=== PATIENT | male | born 1990 | race Caucasian/White ===

== ENCOUNTER 2016-05-03 13:52 | Emergency (ER) | payer OTHER ==
[~2016-05-03] VITALS: Ht 177.8 cm; Wt 66.5 kg
[2016-05-03 13:57] VITALS: BP 132/85; PULSE 87; TEMP 36.4; O2SAT 98; Ht 177.8 cm; Wt 66.5 kg
[2016-05-03] MEDS ORDERED: ALPR1TAB3 PO (14:09)
--- NOTE | 2016-05-03 16:15 | EMERGENCY ROOM VISIT NOTE ---
History First contact with patient: 14:45 Chief Complaint: MEDICATION REFILL REQUEST Stated Complaint: MEDICATION REQUEST History of Present Illness The patient is a 25 year old white male who presents to the Emergency Room with complaints of running out of his Xanax. A female assistant project manager accompanies him today. Patient states that he moved here from [place] and has had difficulty obtaining his Xanax. He states he takes 1 mg twice a day and this is prescribed by . Patient states that he saw a PCP in [place], Dr. Lennon, and was only prescribed 0.25 mg twice a day. When he requested that the prescription be increased, he states he was told to find another primary care doctor. He states he has run out of his medication and is requesting a refill. He takes for anxiety. He denies any other medications. No other complaints. Review of Systems REVIEW OF SYSTEM: HEENT: No dizziness, visual problems, hearing loss, or tinnitus. There is no difficulty swallowing and no oral lesions are present. PULMONARY: No cough, shortness of breath, sputum production or hemoptysis. CARDIOVASCULAR: No chest pain, palpitations, shortness of breath or peripheral edema. GASTROINTESTINAL: No diarrhea, constipation, nausea, vomiting, or abdominal pain. GENITOURINARY: No dysuria, frequency, urgency or nocturia. NEUROLOGIC: No weakness, muscle tenderness, epilepsy or history of neurological problems. MUSCULOSKELETAL: No history of joint tenderness/swelling. No history of arthritis or arthralgias. SKIN: No rashes or lesions. PSYCHIATRIC: Positive history of anxiety. ENDOCRINE: No history of diabetes, thyroid disorders, or abnormal hair growth. Past Medical/Surgical History Past medical history: Significant for anxiety. Previous surgeries: None Family History Unremarkable. Social History Smoking Status: Current Every Day Smoker Smokeless Tobacco Use: No Alcohol Use: none Drug Use: none Marital Status: single Housing Status: lives with significant other Occupation Status: unemployed Current/Historical Medications Scheduled Alprazolam (Xanax), 1 MG PO BID Allergies Coded Allergies: No Known Allergies (Unverified , 05/03/16) Physical Exam Vital Signs Date Time Temp Pulse Resp B/P Pulse Ox O2 Delivery O2 Flow Rate FiO2 05/03/16 13:57 36.4 87 18 132/85 98 Physical Exam Gen.: Well-developed, well-nourished, young white male, sitting on a bed. Alert and oriented. No acute distress. He does not seem anxious. Medical Decision & Procedures ED Course Patient was evaluated in [facility]. PDMP was checked. He was found to have filled 2 prescriptions from his doctor in [place] for Xanax 0.25 mg twice a day. I did call his doctor's office in [place]. He on-call physician was not familiar with the patient but only recommended filling the 0.25 mg tablet. Pharmacy records were noted to show that he had received 1 mg tablets from the [facility]. I did discuss this with the patient. He stated that the 0.25 mg tablets were prescribed by his doctor in [place] because "it would look better". I informed the patient that he should have enough of the 0.25 mg tablets as prescribed by Dr. Lennon, and that I would not prescribe 1 mg tablets. Patient asked for assistance in finding a new PCP. I did suggest that he have his doctor in [place] speak directly with any new primary care physician to avoid any misunderstanding about his Xanax dose and frequency. Case management did speak with the patient. Patient then walked out without further instruction. Medical Decision Possibility of anxiety, medication seeking behavior, and medication abuse were considered. Impression Primary Impression: Medication management Departure Information Dispostion Against Medical Advice Condition GOOD Referrals Deepti Lennon MD No Doctor, Assigned (PCP) Forms WORK / SCHOOL INSTRUCTIONS, HOME CARE DOCUMENTATION FORM, IMPORTANT VISIT INFORMATION Patient Instructions A Signature Page, My Pro Stream + Additional Instructions Have your family doctor in [place] discuss your medication dose and regimen with your family doctor here
== END 2016-05-03 15:36 | disposition left against medical advice (07) ==
LOC: C.EDB 13:56 → C.EDD 15:36
DX: Z76.0 Encounter for issue of repeat prescription (principal); F17.200 Nicotine dependence, unspecified, uncomplicated